=== PATIENT | male | born 1960 | race Caucasian/White ===

== ENCOUNTER → 2018-05-20 | Day surgery (SDC) | payer OTHER ==
[2018-05-18 15:05] LABS: Urine WBC None Seen /hpf (0 - 3)
[2018-05-18 15:28] LABS: Calcium 8.6 mg/dL (8.5-10.1)
[2018-05-18 15:32] LABS: BUN/Creatinine Ratio 20.2; Bilirubin, Total 0.5 mg/dL (0.2-1.0); Total Protein 7.4 g/dL (6.4-8.2)
[2018-05-18 15:43] LABS: INR 0.98 (0.9-1.15); Partial Thromboplastin Time 26.7 sec (23.78-33.04); Prothrombin Time 10.5 sec (9.27-12.13)
[2018-05-18 16:23] LABS: Urine Bacteria NONE SEEN /hpf (None Seen); Urine Blood Negative /uL (Negative); Urine Specific Gravity 1.022 (1.001-1.035)
[2018-05-18 17:16] LABS: Basophils # (auto) 0 uL; Basophils % (auto) 0.8 % (0.0-2.0); Eosinophils # (auto) 0.1 uL; Eosinophils % (auto) 1.6 % (0.0-7.0); Hematocrit 39.6 % (41.0-53.0); Hemoglobin 12.8 g/dL (13.5-17.5); Lymphocytes # (auto) 1.8 uL; Lymphocytes % (auto) 40.6 % (10.0-50.0); Mean Corpuscular Hemoglobin 30.1 pg (28.0-32.0); Mean Corpuscular Hgb Conc. 32.4 g/dL (32.0-36.0); Monocytes # (auto) 0.6 uL; Monocytes % (auto) 14.1 % (0.0-12.0); Neutrophils # (auto) 1.9 uL; Neutrophils % (auto) 42.9 % (37.0-80.0); Nucleated Red Blood Cells % 0.2 %; Platelet Count (auto) 188 10^3/uL (140-450); Red Blood Cells 4.26 10^6/uL (4.5-5.90); Red Cell Distribution Width 15.2 % (11.8-14.3); White Blood Cell 4.4 10^3/uL (4.4-10.8)
[~2018-05-20] VITALS: Ht 182.9 cm; Wt 95.3 kg
[~2018-05-20] MED LIST: BUPIVACAINE 0.75% INJ 10ML MPV SDV IJ ONE; CLINDAMYCIN 600MG IV 50 ML IV ONE; HYDR-4683 PO; HYDROmorphone HCL 2 MG/ML VL IV PRN; KETOROLAC TROMETH 30 MG/ML 1ML VIAL IV ONE; METOCLOPRAMIDE HCL 5MG/ml INJ 2ml VIAL IV ONE; MIDAZOLAM HCL 1MG/1ML-2 ML VIAL ONE; ONDANSETRON HCL 4 MG/2 ML VIAL ONE; PROM1SYP4 PO; PROPOFOL 10 MG/ML 20 ML IV ONE; SODIUM CHLORIDE LOCK 10 ML ONE; fentaNYL CITRATE 100 MCG/2 ML VL ONE; hydrALAZINE HCL 20 MG/ML VL IV ONE; hydrALAZINE HCL 20 MG/ML VL ONE
[2018-05-20 10:54] VITALS: BP 156/95
== END | disposition home or self-care (01) ==
LOC: SUR 06:46
PROVIDERS: ATTEND Podiatrist Foot & Ankle Surgery
DX: M20.21 Hallux rigidus, right foot (principal); M20.5X1 Other deformities of toe(s) (acquired), right foot; M89.8X7 Other specified disorders of bone, ankle and foot; I10 Essential (primary) hypertension; J42 Unspecified chronic bronchitis; Z98.890 Other specified postprocedural states; Z79.1 Long term (current) use of non-steroidal anti-inflammatories (NSAID); Z79.891 Long term (current) use of opiate analgesic; Z79.899 Other long term (current) drug therapy
CPT/HCPCS: 27687; 28289; 36415; 80053; 81001; 85025; 85610; 85730; 88304; 88311; J0360; J2250; J2405; J2704; J3010; J3490

== ENCOUNTER 2018-06-05 11:19 | Day surgery (SDC) | payer OTHER ==
[2018-06-04 09:49] LABS: Basophils # (auto) 0 uL; Basophils % (auto) 1.2 % (0.0-2.0); Eosinophils # (auto) 0.1 uL; Eosinophils % (auto) 1.9 % (0.0-7.0); Hematocrit 39.4 % (41.0-53.0); Hemoglobin 12.9 g/dL (13.5-17.5); Lymphocytes # (auto) 1.6 uL; Lymphocytes % (auto) 42.2 % (10.0-50.0); Mean Corpuscular Hemoglobin 30.2 pg (28.0-32.0); Mean Corpuscular Hgb Conc. 32.7 g/dL (32.0-36.0); Mean Corpuscular Volume 92.2 fL (80.0-100.0); Monocytes # (auto) 0.4 uL; Monocytes % (auto) 9.6 % (0.0-12.0); Neutrophils # (auto) 1.7 uL; Neutrophils % (auto) 45.1 % (37.0-80.0); Nucleated Red Blood Cells % 0.1 %; Platelet Count (auto) 218 10^3/uL (140-450); Red Blood Cells 4.28 10^6/uL (4.5-5.90); Red Cell Distribution Width 14.9 % (11.8-14.3); White Blood Cell 3.7 10^3/uL (4.4-10.8)
[2018-06-04 10:04] LABS: INR 0.98 (0.9-1.15); Partial Thromboplastin Time 25.4 sec (23.78-33.04); Prothrombin Time 10.5 sec (9.27-12.13)
[2018-06-04 10:12] LABS: Albumin 3.6 g/dL (3.4-5.0); Calcium 8.5 mg/dL (8.5-10.1)
[2018-06-04 10:16] LABS: BUN/Creatinine Ratio 13.7; Bilirubin, Total 0.3 mg/dL (0.2-1.0); Total Protein 7.3 g/dL (6.4-8.2)
[2018-06-04 10:19] LABS: Urine Bacteria NONE SEEN /hpf (None Seen); Urine Blood Negative /uL (Negative); Urine Mucus FEW (None Seen); Urine Specific Gravity 1.024 (1.001-1.035); Urine WBC 1 /hpf (0 - 3)
[~2018-06-05] VITALS: Ht 182.9 cm; Wt 95.3 kg
[~2018-06-05 11:19] MED LIST changes: -BUPIVACAINE 0.75% INJ 10ML MPV SDV IJ ONE; -CLINDAMYCIN 600MG IV 50 ML IV ONE; -HYDROmorphone HCL 2 MG/ML VL IV PRN; -KETOROLAC TROMETH 30 MG/ML 1ML VIAL IV ONE; -METOCLOPRAMIDE HCL 5MG/ml INJ 2ml VIAL IV ONE; -MIDAZOLAM HCL 1MG/1ML-2 ML VIAL ONE; -ONDANSETRON HCL 4 MG/2 ML VIAL ONE; -PROPOFOL 10 MG/ML 20 ML IV ONE; -SODIUM CHLORIDE LOCK 10 ML ONE; -fentaNYL CITRATE 100 MCG/2 ML VL ONE; -hydrALAZINE HCL 20 MG/ML VL IV ONE; -hydrALAZINE HCL 20 MG/ML VL ONE
[2018-06-05] MEDS ORDERED: ceFAZolin 1GM/50ML 50 ML IV ONE (11:38)
[2018-06-05] MEDS ORDERED: BUPIVACAINE 0.75% INJ 10ML MPV SDV IJ ONE (12:42)
[2018-06-05] MEDS ORDERED: NEOMYCIN-BACITRACIN-POLYM 15GM TOP OINT TOP ONE (12:42)
[2018-06-05] MEDS ORDERED: fentaNYL CITRATE 100 MCG/2 ML VL ONE (13:01)
[2018-06-05] MEDS ORDERED: MIDAZOLAM HCL 1MG/1ML-2 ML VIAL ONE (13:01)
[2018-06-05] MEDS ORDERED: PROPOFOL 10 MG/ML 20 ML IV ONE (13:48)
[2018-06-05] MEDS ORDERED: hydrALAZINE HCL 20 MG/ML VL IV ONE (14:00)
[2018-06-05] MEDS ORDERED: hydrALAZINE HCL 20 MG/ML VL ONE (14:02)
[2018-06-05] MEDS ORDERED: ONDANSETRON HCL 4 MG/2 ML VIAL IV ONE (14:15)
[2018-06-05] MEDS ORDERED: ePHEDrine SULFATE 50 MG/ML AMP IV PRN (14:15)
[2018-06-05] MEDS ORDERED: fentaNYL CITRATE 100 MCG/2 ML VL IV PRN (14:15)
[2018-06-05] MEDS ORDERED: hydrALAZINE HCL 20 MG/ML VL IV PRN (14:15)
[2018-06-05 14:48] VITALS: BP 154/88
== END 2018-06-05 14:52 | disposition home or self-care (01) ==
LOC: SUR 11:19
PROVIDERS: ATTEND Podiatrist Foot & Ankle Surgery
DX: M20.22 Hallux rigidus, left foot (principal); M89.8X7 Other specified disorders of bone, ankle and foot; I10 Essential (primary) hypertension; J42 Unspecified chronic bronchitis; Z98.890 Other specified postprocedural states; Z79.1 Long term (current) use of non-steroidal anti-inflammatories (NSAID); Z79.899 Other long term (current) drug therapy
CPT/HCPCS: 27687; 28289; 36415; 80053; 81001; 85025; 85610; 85730; J0360; J0690; J2250; J2704; J3010; J3490